=== PATIENT | female | born 1990 | race Caucasian/White ===

== ENCOUNTER 2020-01-22 14:08 | Emergency (ER) | payer OTHER, SELFPAY ==
--- NOTE | ~2020-01-22 | XR_ITS ---
XR foot LT min 3V 01/22/2020 14:35 Indication: Left foot pain after recent fall Procedure: 4 views left foot Comparison: No prior studies for comparison. Findings: Normal alignment. No fracture or traumatic malalignment. Lisfranc joint is intact. No focal soft tissue abnormality. No radiopaque foreign bodies. Impression: 1: No acute bone or joint abnormality. Reviewed, dictated and finalized at location B. Impression: 1: No acute bone or joint abnormality.
[2020-01-22 14:19] VITALS: BP 137/71; PULSE 75; RESP 16; TEMP 36.8; O2SAT 99
[2020-01-22 14:24] VITALS: BP 137/71; PULSE 75; RESP 16; TEMP 36.8; O2SAT 99
--- NOTE | 2020-01-22 14:54 | ED.LOWEXIN ---
HPI - Extremity Injury (Lower) General Chief Complaint: Extremity Injury, Lower Stated Complaint: Left foot and leg Time Seen by Provider: 01/22/20 14:41 Source: patient and RN notes reviewed Mode of arrival: ambulatory Limitations: no limitations History of Present Illness HPI Narrative: Patient presents today complaining of pain to her left foot. 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 Pain is primarily with weightbearing. Denies numbness or tingling in the leg or foot. Currently rates her pain 3/10 at rest. She has been taking ibuprofen applying ice, and elevating the foot without much relief. She is not applying for Workmen's Compensation. MD complaint: foot injury Related Data Home Medications Medication Instructions Recorded Confirmed No Home Medications 01/22/20 01/22/20 Allergies Allergy/AdvReac Type Severity Reaction Status Date / Time No Known Allergies Allergy Verified 10/12/17 15:51 Review of Systems Review of Systems: Narrative: CONSTITUTIONAL: Denies body aches, fever, chills, or sweats. EYES: Denies visual changes, redness, or discharge. ENT: Denies rhinorrhea, congestion, sore throat, or otalgia. CARDIOVASCULAR: Denies chest pain, palpitations, or edema. RESPIRATORY: Denies cough or dyspnea. GASTROINTESTINAL: Denies abdominal pain, nausea, vomiting, or diarrhea. GENITOURINARY: Denies dysuria or hematuria. SKIN: Denies rash, itching, or wounds. MUSCULOSKELETAL: Denies back pain, or myalgia. + Left foot injury NEUROLOGIC: Denies headache, numbness, tingling, or weakness. PSYCH: Denies depression or anxiety. PMFSH Comments At time of signature, I have reviewed and agree with nursing past medical, surgical, social and family history unless otherwise noted. Please see nursing chart for further information. There is no relevant family history pertinent to the presenting complaint Exam Narrative: Exam Narrative: GENERAL: Well-appearing, well-nourished, and in no acute distress. HEAD: Normocephalic, atraumatic. EYES: EOMI. No redness or drainage. Conjunctivae normal. ENT: Mucous membranes pink and moist. NECK: Normal AROM. Supple. No lymphadenopathy. CHEST: No respiratory distress. EXTREMITIES: Tenderness to the dorsum of the left midfoot as well as the portion of the arch. No edema, ecchymosis, or erythema noted. No tenderness about the ankle. Distal sensation intact. Capillary refill normal. Pedal pulse normal. Full range of motion of the ankle and all toes. SKIN: Warm, dry, no rash. Capillary refill normal. Normal skin turgor. NEURO: No focal deficits. Alert and oriented x3. Gait steady. PSYCH: Normal affect. No signs of depression or anxiety. Course Vital Signs Vital signs: Vital Signs Temperature 98.3 F 01/22/20 14:19 Pulse Rate 75 01/22/20 14:19 Respiratory Rate 16 01/22/20 14:19 Blood Pressure 137/71 01/22/20 14:19 Pulse Oximetry 99 01/22/20 14:19 Temperature 98.3 F 01/22/20 14:24 Pulse Rate 75 01/22/20 14:24 Respiratory Rate 16 01/22/20 14:24 Blood Pressure 137/71 01/22/20 14:24 Pulse Oximetry 99 01/22/20 14:24 Reviewed. Pt has been instructed to follow up with her PCP regarding her elevated blood pressure today. MDM - Extremity Injury (Lower) Differential Diagnosis Differential diagnosis: Likely ankle sprain and strain, ankle fracture and other (Foot sprain, foot fracture, contusion) Imaging Data Radiologist's impression: ITS Impressions Foot X-Ray 01/22/20 14:37 Impression: 1: No acute bone or joint abnormality. Critical Care Time Critical Care Time Critical Care Time: No Discharge Plan Discharge Clinical Impression: Sprain of foot, left Patient Disposition: Home, Self-Care Condition: Stable Instructions: Foot Sprain (ED) Additional Instructions: Your x-ray is negative for anything co
== END 2020-01-22 15:08 | disposition home or self-care (01) ==
PROVIDERS: Emergency Provider Nurse Practitioner
DX: S93.602A Unspecified sprain of left foot, initial encounter (principal); X50.9XXA Other and unspecified overexertion or strenuous movements or postures, initial encounter; N80.9 Endometriosis, unspecified
CPT/HCPCS: 73630; 99213; G0463

== ENCOUNTER 2020-08-28 11:07 | Emergency (ER) | payer OTHER, SELFPAY ==
[2020-08-28 11:21] VITALS: BP 119/77; PULSE 77; RESP 20; TEMP 36.4; O2SAT 100
--- NOTE | 2020-08-28 11:36 | ED.EAR ---
HPI - Ear Problem General Chief complaint: Ear Stated complaint: ear ache Time Seen by Provider: 08/28/20 11:26 Source: patient and RN notes reviewed Mode of arrival: ambulatory Limitations: no limitations History of Present Illness HPI Narrative: Patient presents today complaining of left ear pain x1 week that has been worsening since onset. She also reports some muffled hearing. Currently rates her pain 5/10, which increases with the wind hits her ear. She has been taking ibuprofen without relief. She also tried some peroxide in her ear yesterday, which she states made the ear hurt worse. MD Complaint: ear pain Location: left ear Related Data Allergies Allergy/AdvReac Type Severity Reaction Status Date / Time No Known Allergies Allergy Verified 08/28/20 11:23 Review of Systems Review of Systems: Narrative: CONSTITUTIONAL: Denies body aches, fever, chills, or sweats. EYES: Denies visual changes, redness, or discharge. ENT: Denies rhinorrhea, congestion, sore throat. + Left ear pain CARDIOVASCULAR: Denies chest pain, palpitations, or edema. RESPIRATORY: Denies cough or dyspnea. GASTROINTESTINAL: Denies abdominal pain, nausea, vomiting, or diarrhea. GENITOURINARY: Denies dysuria or hematuria. SKIN: Denies rash, itching, or wounds. MUSCULOSKELETAL: Denies back pain, joint pain, or myalgia. NEUROLOGIC: Denies headache, numbness, tingling, or weakness. PSYCH: Denies depression or anxiety. [facility] Family History Family History (Updated 11/28/13 @ 07:13 by DOCTOR UNKNOWN) Mother Family history of hyperthyroidism Other Family history of malignant neoplasm of cervix Social History Social History Second hand tobacco smoke exposure: No Alcohol intake: never Comments At time of signature, I have reviewed and agree with nursing past medical, surgical, social and family history unless otherwise noted. Please see nursing chart for further information. There is no relevant family history pertinent to the presenting complaint Exam Narrative: Exam Narrative: GENERAL: Well-appearing, well-nourished, and in no acute distress. HEAD: Normocephalic, atraumatic. EYES: EOMI. No redness or drainage. Conjunctivae normal. ENT: Mucous membranes pink and moist. Nares clear. No rhinorrhea. Right TM normal. Left TM partially occluded with hard, dry, ball of cerumen that is pushed up against the TM. Surrounding canal is mildly erythematous. Throat normal. Uvula midline. NECK: Normal AROM. Supple. No lymphadenopathy. CHEST: No respiratory distress. Clear to auscultation. HEART: Regular rate and rhythm. No murmur appreciated. Normal peripheral pulses. EXTREMITIES: Normal range of motion. No edema. SKIN: Warm, dry, no rash. Capillary refill normal. Normal skin turgor. NEURO: No focal deficits. Alert and oriented x3. Gait steady. PSYCH: Normal affect. No signs of depression or anxiety. Course Course Emergency Course: I offered to remove the cerumen from patient's ear, but she has declined today. Since it is too close to the TM I wanted to instill peroxide first and flush it, but since this was too painful for patient yesterday to do at home she has declined. She wanted to try some Debrox at home then try to flush it out by herself. Vital Signs Vital signs: Vital Signs Temperature 97.5 F L 08/28/20 11:21 Pulse Rate 77 08/28/20 11:21 Respiratory Rate 20 08/28/20 11:21 Blood Pressure 119/77 08/28/20 11:21 Pulse Oximetry 100 08/28/20 11:21 Temperature 97.5 F L 08/28/20 11:21 Pulse Rate 77 08/28/20 11:21 Respiratory Rate 20 08/28/20 11:21 Blood Pressure 119/77 08/28/20 11:21 Pulse Oximetry 100 08/28/20 11:21 Reviewed Medical Decision Making Differential Diagnosis Differential Diagnosis: Otitis media, otitis externa, ruptured TM, serous otitis, eustachian tube dysfunction, cerumen impaction Vital Signs Vital Signs: Vital Signs Temperature 97.5 F L 08/28/20 11:21 Pulse Rate 77
== END 2020-08-28 11:43 | disposition home or self-care (01) ==
PROVIDERS: Emergency Provider Nurse Practitioner
DX: H61.22 Impacted cerumen, left ear (principal)
CPT/HCPCS: 99203; G0463

== ENCOUNTER 2021-07-17 14:29 | Emergency (ER) | payer OTHER, SELFPAY ==
[2021-07-17 14:39] VITALS: BP 129/75; PULSE 68; RESP 16; TEMP 35.8; O2SAT 100
--- NOTE | 2021-07-17 15:11 | ED.ABDPAIN ---
HPI - Abdominal Pain General Chief Complaint: Abdominal Pain Stated Complaint: Abdominal Pain Time Seen by Provider: 07/17/21 15:11 Source: patient Mode of arrival: ambulatory Limitations: no limitations History of Present Illness HPI narrative: 31-year-old female presents with left groin pain for 3 to 4 days. Reports history of similar pain 1 year ago and was told that she had lymph node swelling to this area. Patient states that pain is worse with change of positions and when ambulatory. 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 Is possible that she caused an injury to herself. Has not taken any medication to treat her pain. Denies abdominal pain. No urinary symptoms. States that she does have a hemorrhoid that she has had for a long time, denies current constipation or bleeding from hemorrhoid. No nausea vomiting diarrhea. No concern for . All systems reviewed and negative except as noted. Related Data Allergies Allergy/AdvReac Type Severity Reaction Status Date / Time No Known Allergies Allergy Verified 06/23/21 11:00 Review of Systems Review of Systems: CONSTITUTIONAL: Denies fever, chills, or sweats. EYES: Denies visual changes, redness, or discharge. ENT: Denies rhinorrhea, congestion, sore throat, or otalgia. CARDIOVASCULAR: Denies chest pain, palpitations, or edema. RESPIRATORY: Denies cough or dyspnea. GASTROINTESTINAL: Denies abdominal pain, nausea, vomiting, or diarrhea. GENITOURINARY: Denies dysuria or hematuria. SKIN: Denies rash or itching. MUSCULOSKELETAL: Denies back pain, joint pain, or myalgia. Reports left groin pain. NEUROLOGIC: Denies headache, numbness, or weakness. PSYCHIATRIC: Denies anxiety or depression. All other systems reviewed are negative, except as documented in HPI. [facility] Family History Family History (System 06/23/21 @ 11:00 by Юлия White) Mother Family history of hyperthyroidism Other Family history of malignant neoplasm of cervix Social History Social History (System 06/23/21 @ 11:00 by Юлия White) Second hand tobacco smoke exposure: No Alcohol intake: never Comments At time of signature, agree with nursing past medical, surgical, social and family history. There is no relevant family history pertinent to the presenting complaint. Exam Narrative: GENERAL: This is a well-nourished, well-developed patient, in no apparent distress. HEAD: normocephalic, atraumatic. EYES: PERRL. Sclera clear/white. Vision is grossly intact. EARS: External ears normal NOSE: External nose normal NECK: Neck supple, non-tender without lymphadenopathy, masses or thyromegaly. CARDIOVASCULAR: Regular rate and rhythm without murmurs, gallops, or rubs. RESPIRATORY: Clear to auscultation. Breath sounds equal bilaterally. No wheezes, rales, or rhonchi. Gastrointestinal: Normal bowel sounds. No tenderness to abdomen. No guarding, masses, swelling noted. SKIN: warm, Dry, intact with no suspicious lesions or rash, good texture and turgor. NEURO: awake, alert, and oriented to person, place and time. There were no obvious focal neurologic abnormalities. EXTREMITIES: Tenderness to left groin. Worsening of pain with abduction and abduction of left hip. There is no lymph node swelling noted. Course Course Level of Care: Express Care Visit Vital Signs Vital signs: Vital Signs Temperature 35.8 C L 07/17/21 14:39 Pulse Rate 68 07/17/21 14:39 Respiratory Rate 16 07/17/21 14:39 Blood Pressure 129/75 07/17/21 14:39 Pulse Oximetry 100 07/17/21 14:39 Temperature 35.8 C L 07/17/21 14:39 Pulse Rate 68 07/17/21 14:39 Respiratory Rate 16 07/17/21 14:39 Blood Pressure 129/75 07/17/21 14:39 Pulse Oximetry 100 07/17/21 14:39 Reviewed MDM - Abdominal Pain MDM Narrative Medical decision making narrative: Patient is aware of diagnosis, understands and agrees to treatment plan. Anticipatory guidance given. Patient agrees to follow-up as di
== END 2021-07-17 15:22 | disposition home or self-care (01) ==
PROVIDERS: Emergency Provider Nurse Practitioner Family
DX: S39.011A Strain of muscle, fascia and tendon of abdomen, initial encounter (principal); X58.XXXA Exposure to other specified factors, initial encounter
CPT/HCPCS: 99213; G0463

== ENCOUNTER 2021-08-07 12:12 | Emergency (ER) | payer OTHER, SELFPAY ==
--- NOTE | 2021-08-07 12:23 | ED.DENTAL ---
HPI - Dental/Oral General Chief complaint: Dental/Oral Stated complaint: TOOTH ACHE Time Seen by Provider: 08/07/21 13:00 Source: patient Mode of arrival: ambulatory Limitations: no limitations History of Present Illness HPI Narrative: Silvio is a 31-year-old female patient presenting to clinic today with left lower dental pain x2 to 3 days. She reports that she has a dentist appointment on Monday however she has a hole in her tooth and thinks that her tooth may be infected. Location: Tooth # (18) Related Data Allergies Allergy/AdvReac Type Severity Reaction Status Date / Time No Known Allergies Allergy Verified 08/07/21 12:43 Review of Systems Review of Systems: Pertinent positives per HPI. Patient denies any fever, chills, rash, headache, visual changes, dizziness, cough, runny nose, sore throat, shortness of breath, chest pain, palpitations, nausea, vomiting, diarrhea, constipation, abdominal pain, or any urinary issues. PMFSH Family History Family History Mother Family history of hyperthyroidism Other Family history of malignant neoplasm of cervix Social History Social History Second hand tobacco smoke exposure: No Alcohol intake: never Comments At the time of my signature, I reviewed and agree with the nursing past medical, surgical, social, and family history. There is no relevant family history pertinent to the patient complaint. Exam Narrative: General: Well-developed, well nourished, in no apparent distress Head: Normocephalic, atraumatic Eyes: Pupils equally round and reactive to light bilaterally, EOM intact, sclera and conjunctive clear, no discharge, lids normal Ears: TMs intact and clear, ear canals clear, no drainage, grossly hearing normal. Nose: Nares patent, no discharge, no inflammation, no sinus tenderness. Mouth: Oropharynx without lesions or masses, poor dentition, she has a hole/dental carries #18 tooth with redness and swelling around the gums, has a small knotted area just below the tooth to the jaw line. MMM. Neck: Supple, trachea midline, no enlargement of anterior or posterior cervical nodes, no thyroid masses or goiter palpable. Cardio: Regular rate and rhythm, s1 and s2 normal, no murmur appreciated. Resp: Clear to auscultation bilaterally anteriorly and posteriorly, no rhonchi, rales, wheezing or rubs Course Course Emergency Course: Portions of this record may have been created with voice recognition software. Level of Care: Express Care Visit Vital Signs Vital signs: Vital signs reviewed Procedures Nerve Block Nerve Block 1: Intraoral Nerve Block: inferior alveolar Procedure Successful: Yes Patient Tolerated Procedure: well Additional Comments: Inferior alveolar block performed to the left lower jaw. 2 mL of lidocaine with epi was instilled into the space. Patient tolerated procedure well. Pain decreased from a 6 to a 4 and she still had some throbbing to so a dose of Toradol 60 mg IM was given in the clinic. MDM - Dental/Oral MDM Narrative Medical decision making narrative: At the time of visit patient is resting on the exam table in moderate pain. Inferior alveolar dental block performed and this gave the patient some relief however she was still having some throbbing pain so an additional dose of Toradol 60 mg IM was given. We will place the patient on amoxicillin and have her follow-up with her dentist as scheduled on Monday. She voiced understanding of discharge instruction Differential Diagnosis Differential diagnosis: Likely gingival abscess, dental caries, toothache, dental abscess, fracture of tooth and aphthous ulcer Discharge Plan Discharge Clinical Impression: Dental infection Patient Disposition: Home, Self-Care Condition: Stable Instructions: Antibiotic Form, Dental Abscess (ED) Additional I
[2021-08-07 12:30] VITALS: BP 115/65; PULSE 91; RESP 16; TEMP 37.4; O2SAT 100
[2021-08-07] MEDS: KETOROLAC (*BKC) 60 MG/2 ML VIAL IM (13:07)
== END 2021-08-07 13:25 | disposition home or self-care (01) ==
PROVIDERS: Emergency Provider Nurse Practitioner Family
DX: K04.7 Periapical abscess without sinus (principal)
CPT/HCPCS: 64400; 96372; 99213; G0463; J1885

== ENCOUNTER 2021-12-08 15:31 | Outpatient (CLI) | payer OTHER, SELFPAY ==
--- NOTE | ~2021-12-08 | US_ITS ---
EXAMINATION: US pelvic complete w TV DATE: 12/08/2021 16:38 INDICATION: Female infertility, unspecified TECHNIQUE: Multiple transabdominal and endovaginal sonographic images of the pelvis were obtained. COMPARISON: None. FINDINGS: The uterus measures 6.7 x 4.3 x 5.9 cm. The endometrial complex measures 21 mm. The right o vary measures 3.7 x 1.7 x 2.4 cm. The left ovary measures 4.1 x 2.7 x 3.2 cm. There is a 2.2 x 1.8 x 2 cm complex cystic and solid mass of the left ovary but no definite internal vascularity. There is n ormal vascular flow in the ovaries. There is no free fluid in the pelvis. IMPRESSION: 1. Endometrial thickening which, assuming negative test, may be due to hyperplasia, polyp, or malignancy. Endometrial sampling is recommended. 2. Complex cystic and solid mass of the left ovary which could reflect hemorrhagic cyst, endometrioma , or less likely solid neoplasm. Follow-up ultrasound in 8-12 weeks is recommended. Reviewed, dictated and finalized at location B. IMPRESSION: 1. Endometrial thickening which, assuming negative test, may be due t o hyperplasia, polyp, or malignancy. Endometrial sampling is recommended. 2. Complex cystic and solid mass of the left ovary which could reflect hemorrha gic cyst, endometrioma, or less likely solid neoplasm. Follow-up ultrasound in 8-12 weeks is recommended.
== END 2021-12-08 15:32 | disposition home or self-care (01) ==
PROVIDERS: Visit Provider Advanced Practice Midwife
DX: N97.9 Female infertility, unspecified (principal); R93.89 Abnormal findings on diagnostic imaging of other specified body structures; N83.202 Unspecified ovarian cyst, left side
CPT/HCPCS: 76830; 76856

== ENCOUNTER 2021-12-23 11:49 | Outpatient (CLI) | payer OTHER, SELFPAY ==
--- NOTE | ~2021-12-23 | XR_ITS ---
EXAMINATION: XR hysterosalpingogram DATE: 12/23/2021 12:37 INDICATION: Infertility. TECHNIQUE: Fluoroscopy was performed by the radiologist during contrast infusion into the endometrial cavity of the uterus by the primary physician. Fluoroscopy exposure time was 0.2 minutes. The total number of images was 10. FINDINGS: The intrauterine cavity is normal in morphology. The fallopian tubes are normal in caliber. There is normal free intraperitoneal spillage of contrast bilaterally. IMPRESSION: 1. Normal hysterosalpingogram. Reviewed, dictated and finalized at location A.
== END 2021-12-23 11:50 | disposition home or self-care (01) ==
PROVIDERS: Visit Provider Obstetrics & Gynecology Gynecology
DX: Z31.49 Encounter for other procreative investigation and testing (principal)
CPT/HCPCS: 58340; 74740; Q9966

== ENCOUNTER 2022-01-18 15:01 | Outpatient (CLI) | payer OTHER, SELFPAY ==
--- NOTE | ~2022-01-18 | US_ITS ---
EXAMINATION: US pelvic complete w TV DATE: 01/18/2022 15:32 INDICATION: LT OVARIAN CYST UNSPECIFIED TECHNIQUE: Multiple transabdominal and endovaginal sonographic images of the pelvis were obtained. COMPARISON: [place]08[place] [facility] [place]. FINDINGS: Uterus: 7.6 x 4.3 x 3.8 cm. Endometrial complex measures 6 mm. Right Ovary: 2.3 x 3.0 x 1.5 cm. Vascular flow is present. Left Ovary: 1.9 x 1.9 x 2.4 cm. Vascular flow is present. There is small volume free fluid in the pelvis. IMPRESSION: Normal pelvic sonogram findings. Previously described endometrial thickening and complex left ovarian lesion or not identified in this examination. Reviewed, dictated and finalized at [facility]. IMPRESSION: Normal pelvic sonogram findings. Previously described endometrial thickening an d complex left ovarian lesion or not identified in this examination.
== END 2022-01-18 15:02 | disposition home or self-care (01) ==
LOC: ANHIMG 15:03
PROVIDERS: Visit Provider Obstetrics & Gynecology Gynecology
DX: N83.202 Unspecified ovarian cyst, left side (principal)
CPT/HCPCS: 76830; 76856

== ENCOUNTER 2023-02-19 13:32 | Emergency (ER) | payer OTHER, SELFPAY | END 2023-02-19 13:47 | disposition left against medical advice (07) | PROVIDERS: Emergency Provider Nurse Practitioner | DX: Z53.21 Procedure and treatment not carried out due to patient leaving prior to being seen by health care provider (principal) | CPT/HCPCS: 99199 ==

== ENCOUNTER 2024-10-22 10:35 | Emergency (ER) | payer SELFPAY ==
[2024-10-22 10:43] VITALS: BP 117/74; PULSE 85; RESP 16; TEMP 36.7; O2SAT 99
--- NOTE | 2024-10-22 10:45 | ED_ITS ---
HPI - Abdominal Pain General Chief Complaint: Abdominal Pain Stated Complaint: Abdominal Pain/Vomiting Time Seen by Provider: 10/22/24 10:46 Source: patient and RN notes reviewed Mode of arrival: ambulatory Limitations: no limitations History of Present Illness HPI narrative: 34 y/o female presented for c/o pain to right lower abdomen. Pain onset last night in the mid lower abdomen, and Says it has moved to the right this morning. Endorses 2 episodes of vomiting last night. Pain is described as sharp and intermittent, rates 6/10 or higher at times. Pain radiates to right upper abdomen. Also reports subjective fever/chills, decreased appetite. Tolerates fluids today. LBM this morning, normal. LMP 09/20. Denies back pain, urinary complaints, or lethargy. Related Data Allergies Allergy/AdvReac Type Severity Reaction Status Date / Time No Known Allergies Allergy Verified 10/22/24 10:38 Review of Systems Review of Systems: CONSTITUTIONAL: Denies body aches, reports fever, chills ENT: Denies rhinorrhea, congestion CARDIOVASCULAR: Denies chest pain, palpitations, or edema. RESPIRATORY: Denies cough or dyspnea. GASTROINTESTINAL: Endorses RLQ abdominal pain, nausea, vomiting,. Denies diarrhea, hematochezia, melena, hematemesis GENITOURINARY: Denies dysuria, hematuria, or CVA tenderness. SKIN: Denies rash MUSCULOSKELETAL: Denies back pain All systems reviewed & are unremarkable except as noted in HPI and below PMFSH Family History Family History Mother Family history of hyperthyroidism Other Family history of malignant neoplasm of cervix Social History Social History Second hand tobacco smoke exposure: No Alcohol intake: never Comments At time of signature, I have reviewed and agree with nursing past medical, surgical, social and family history unless otherwise noted. Please see nursing chart for further information. There is no relevant family history pertinent to the presenting complaint Exam Narrative: GENERAL: mildly ill-appearing, in no acute distress. EYES: EOMI. Conjunctivae normal. ENT: Mucous membranes pink and moist. CHEST: No respiratory distress. Clear to auscultation. HEART: Regular rate and rhythm. ABDOMEN: abd soft, nondistended, normal active bowel sounds. Tender abdomen RLQ; guarding noted. No rebound tenderness, asymmetry EXTREMITIES: Normal range of motion. SKIN: Warm, dry, no rash. Capillary refill normal. Normal skin turgor. NEURO: No focal deficits. Alert and oriented x3. PSYCH: Normal affect. Course Course Emergency Course: Patient is aware of diagnosis, understands and agrees to treatment plan. Anticipatory guidance given. Patient agrees to follow-up as directed and is aware of reasons to seek care at the emergency department. Portions of this record may have been created with voice recognition software Level of Care: Express Care Visit Vital Signs Vital signs: Vital Signs Temperature 98.1 F 10/22/24 10:43 Pulse Rate 85 10/22/24 10:43 Respiratory Rate 16 10/22/24 10:43 Blood Pressure 117/74 10/22/24 10:43 Pulse Oximetry 99 10/22/24 10:43 Oxygen Delivery Room Air 10/22/24 10:43 Temperature 98.1 F 10/22/24 10:43 Pulse Rate 85 10/22/24 10:43 Respiratory Rate 16 10/22/24 10:43 Blood Pressure 117/74 10/22/24 10:43 Pulse Oximetry 99 10/22/24 10:43 Oxygen Delivery Room Air 10/22/24 10:43 Transfer Transfered to: [facility] Transportation: Other ( Private vehicle) Transfer rationale: Pt is agreeable to transfer. Requests transfer to [facility] via private vehicle. Risks of transportation reviewed with pt including injury, worsening of condition and . v/u. has been will be driving pt; Report called to hospital, spoke with Kaylan Mills NP, accepting physician. Pt is in stable condition at time of transfer. Advised to remain NPO and go directly to the hospital. MDM - Abdominal Pain MDM Narrative Medical decision making narrative: Pt with RLQ abdominal pain that started mid lower last night. Unable to obtain urine Preg test after one hour and water given. Advised ER transfer, pt requests [facility]. Differential Diagnosis Differential diagnosis: Likely abdominal pain, acute appendicitis, calculus of kidney, constipation, diverticulitis, pancreatitis, small bowel obstruction and other Discharge Plan Discharge Clinical Impression: Abdominal pain, right lower quadrant Patient Disposition: Acute Care Hospital Condition: Stable Patient Language: Upper Sorbian Follow-up/Referrals: Michael,Hui Gutierrez APRN [Primary Care Provider] - Time of Disposition: 11:50
== END 2024-10-22 11:47 | disposition short-term general hospital (02) ==
PROVIDERS: Emergency Provider Nurse Practitioner Family; PCP Midwife
DX: R10.31 Right lower quadrant pain (principal)
CPT/HCPCS: 99212; G0463

== ENCOUNTER 2024-10-22 12:03 | Day surgery (SDC) | payer SELFPAY ==
[2024-10-22] VITALS (10 sets, daily range): BP systolic 99–140; BP diastolic 62–88; PULSE 51–80; RESP 16–21; TEMP 36.7–37.1; O2SAT 97–100
--- NOTE | ~2024-10-22 | CT_ITS ---
EXAM: CT abdomen pelvis w con - 10/22/2024 14:20 CDT History: 34 years old Female with RLQ pain and WBC >13 TECHNIQUE: Multidetector CT of the abdomen and pelvis with intravenous contrast. Coronal and sagitta l reformats were also provided for review. Automatic exposure control was used for this study. CONTRAST: 100 cc of Optiray 350 was used for this study. COMPARISON: None Available. FINDINGS: VISUALIZED CHEST: Visualized lungs are clear. ABDOMEN and PELVIS: LIVER: Within normal limits. GALLBLADDER: No calcified gallstones. BILE DUCTS: No dilatation. SPLEEN: Within normal limits. PANCREAS: Within normal limits. ADRENAL GLANDS: Within normal limits. KIDNEYS and URETERS: No hydronephrosis or hydroureter. No nephroureterolithiasis. URINARY BLADDER: Within normal limits. STOMACH and BOWEL: Thickened hyperenhancing appendix, measuring up to 10 mm. Findings are concerning for acute appendicitis. REPRODUCTIVE ORGANS: Within normal limits. MESENTERY/PERITONEAL CAVITY: No free fluid or pneumoperitoneum. LYMPH NODES: No abdominal or pelvic lymphadenopathy. ABDOMINAL WALL: Within normal limits. VASCULATURE: Within normal limits. MUSCULOSKELETAL: Within normal limits. IMPRESSION: Findings concerning for acute appendicitis. Reviewed, dictated and finalized at location A.
--- OUTSIDE RECORDS SUMMARY | 2024-10-22 12:05 | XMS_ITS | Clinical Summary ---
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 Gender Identity Not on file Sexual Orientation Not on file Obstetrics History Last Filed Vital Signs Vital Sign Reading Time Taken Comments Blood Pressure 125/81 10/21/2021 1:48 PM CDT Pulse 62 10/21/2021 1:48 PM CDT Temperature 36.6 C (97.9 F) 10/21/2021 10:51 AM CDT Respiratory Rate 20 10/21/2021 1:48 PM CDT Oxygen Saturation 98% 10/21/2021 1:48 PM CDT Inhaled Oxygen Concentration - - Weight 54.4 kg (120 lb) 10/21/2021 10:51 AM CDT Height 165.1 cm (5' 5) 10/21/2021 10:51 AM CDT Body Mass Index 19.97 10/21/2021 10:51 AM CDT Plan of Treatment Health Maintenance Due Date Last Done Comments Cervical Cancer Screening 1991 Depression Screening 1991 Hepatitis C Screening 1991 Varicella Vaccines (2 of 2 - 2-dose childhood series) 1995 05/21/1992 Regular Well Visit/Exam 18-64 2009 DTaP/Tdap/Td Vaccine (7 - Td or Tdap) 10/22/2015 10/21/2005, 08/20/1996, 06/10/1993, Additional history exists Influenza Vaccine (Season Ended) 2024 Hepatitis B Screening Completed 08/07/2001 , 03/06/2001, 02/06/2001 HPV Vaccines Completed 04/27/2007, 12/03, 10/20/2006 Pneumococcal vaccine <65 Aged Out No longer eligible based on patient's age to complete this topic Insurance [id number] [place] [address] Care Teams Overedger Relationship Specialty Start Date End Date Hui Rodriguez NP [address] [place] [id number] PCP - General Family Medicine 03/15/23 Lita Phillips MD [address] [address] Referring Physician Gynecology 05/03/24
--- OUTSIDE RECORDS SUMMARY | 2024-10-22 12:05 | XMS_ITS | Referral Summary ---
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
[2024-10-22 13:27] LABS: BEDSIDEPREGUCG Negative (Negative)
[2024-10-22 13:35] LABS: Hematocrit 39.1 % (37.0-47.0); Hemoglobin 12.5 g/dL (12.0-15.0); Immature Granulocyte Percent A 0.4 % (0-0.5); Lymphocytes Absolute Auto 1.26 K/mm3 (0.9-3.2); Mean Corpuscular HGB Conc 32.0 g/dl (32-36); Mean Corpuscular Hemoglobin 26.8 pg (26-34); Mean Corpuscular Volume 83.9 fl (80-100); Nucleated Red Blood Cells Absolute Auto 0.000 K/mm3 (0.0-0.012); Nucleated Red Blood Cells Perc 0.0 % (0.0-0.2); Platelet Count Result 259 k/mm3 (150-375); Red Blood Count 4.66 M/mm3 (4.2-5.4); White Blood Count 13.8 K/mm3 (4.5-10.0)
[2024-10-22 13:54] LABS: Alanine Aminotransferase 15 U/L (6-35); Albumin Level 5.0 g/dL (3.5-5.1); Alkaline Phosphatase 74 U/L (38-126); Anion Gap 10 mmol/L (4-12); Aspartate Amino Transferase 30 U/L (14-36); Bilirubin,Total 0.9 mg/dL (0.2-1.3); Blood Urea Nitrogen 10 mg/dL (7-17); Calcium 9.5 mg/dL (8.4-10.2); Carbon Dioxide 24 mmol/L (22-30); Chloride 101 mmol/L (98-107); Estimated CRCL calculation 86 ml/min; Estimated Glomerular Filt Rate > 60; Glucose 88 mg/dL (65-110); Lipase 46 U/L (23-300); Potassium 3.5 mmol/L (3.4-5.0); Sodium 135 mmol/L (137-145); Total Protein 8.4 g/dL (6.3-8.2)
[2024-10-22] MEDS: MORPHINE SULFATE (*CRX) 4 MG/ML INJ IV PUSH (13:55)
[2024-10-22 13:56] LABS: Add Urine Microscopic? YES; Appearance Urine Clear (Clear); Glucose Urine UA Negative (Negative); Leukocyte Esterase Ur Trace LEU/UL (Negative); Need Manual Microscopic Reviewed; Nitrate Urine Negative (Negative); Non Pathogenic Casts 0-2; Specific Grav Ur 1.004 (1.001-1.035)
--- OUTSIDE RECORDS SUMMARY | 2024-10-22 14:00 | XMS_ITS | Referral Summary ---
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
--- OUTSIDE RECORDS SUMMARY | 2024-10-22 14:00 | XMS_ITS | Clinical Summary ---
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
--- NOTE | 2024-10-22 14:04 | ED.ABDPAIN ---
HPI - Abdominal Pain General Chief Complaint: Abdominal Pain Stated Complaint: abd pain Time Seen by Provider: 10/22/24 13:41 Source: patient and family () Mode of arrival: ambulatory Limitations: no limitations History of Present Illness HPI narrative: 34-year-old female presents after being sent urgent care for abdominal pain. She states the pain started inferior to her umbilicus migrated to right quadrant. This started yesterday morning and has persisted. She feels nauseated and had 2 episodes of nonbloody emesis. Last oral intake was approximately 7 or 8:00 p.m.. She is anticoagulation. Her bowel movement was this morning she denies any diarrhea, constipation bloody stools. No prior abdominal surgeries other than an enddometrial sampling to assess for endometrosis. Her last menstrual period was around the 20 of September. She had hematuria in a few weeks ago as was recurrence. She denies any urinary urgency, frequency, dysuria. She denies any vaginal bleeding discharge. She has felt subjectively febrile and chilled. Related Data Allergies Allergy/AdvReac Type Severity Reaction Status Date / Time No Known Allergies Allergy Verified 10/22/24 10:38 [facility] Family History Family History Mother Family history of hyperthyroidism Other Family history of malignant neoplasm of cervix Social History Social History Second hand tobacco smoke exposure: No Alcohol intake: never Substance use: current Substance use type: marijuana Other substance usage details: daily Living arrangements: with family Additional living arrangements comments: Exam Narrative: GENERAL: Well-appearing, well-nourished, in mild acute distress. HEAD: Normocephalic, atraumatic. EYES: Non injected, non icteric ENT: Nares clear, no rhinorrhea or epistaxis. Gross auditory acuity intact. NECK: Supple. No meningismus. CHEST: Speaking in full sentences. No respiratory distress. HEART: Regular rate and rhythm. . ABDOMEN: Soft, nondistended. Localized tenderness to palpation in the right lower quadrant. Rovsing sign positive. No rigidity or guarding. Not peritoneal EXTREMITIES: Normal range of motion. No lower extremity edema. SKIN: Warm, dry, no rash. NEURO: No focal deficits. Alert and oriented. Answering questions. Following commands. Normal speech without aphasia or dysarthria. PSYCH: Normal mood and affect. Course Vital Signs Vital signs: Vital Signs Temperature 98.3 F 10/22/24 12:38 Pulse Rate 77 10/22/24 12:38 Respiratory Rate 16 10/22/24 12:38 Blood Pressure 131/84 10/22/24 12:38 Pulse Oximetry 100 10/22/24 12:38 Oxygen Delivery Room Air 10/22/24 12:38 Temperature 98.1 F 10/22/24 19:38 Pulse Rate 56 L 10/22/24 21:00 Respiratory Rate 16 10/22/24 20:25 Blood Pressure 127/88 10/22/24 21:00 Pulse Oximetry 97 10/22/24 20:25 Oxygen Delivery Room Air 10/22/24 21:00 Oxygen Flow Rate 6 10/22/24 20:05 MDM - Abdominal Pain MDM Narrative Medical decision making narrative: 34-year-old female presents with report abdominal pain. This started as pain just below her umbilicus and migrated to her right lower quadrant starting yesterday morning. It is accompanied by nausea, 2 episodes emesis and subjective fevers and chills. Last oral intake was night at approximately 7 or 8:00 p.m.. Not on anticoagulation. In the emergency department they are afebrile with vital signs within normal limits. She has a leukocytosis. Normal renal function. Mild hyponatremia. Slight pyuria but it does reflex to culture. CT with evidence of acute appendicitis. Patient is informed and verifies understanding. Discussed with Dr. Avalos. Georges ordered. Patient will be added onto the OR schedule for this evening. Has otherwise been stable and received analgesic medication as well as antiemetic. Differential Diagnosis Differential diagnosis: Likely abdominal pain, acute appendicitis, calculus of kidney, constipation, diverticulitis, endometriosis and other (Ovarian pathology like torsion or tubo-ovarian abscess; colitis; ovarian cyst) Lab Data Attestation: I reviewed the patient's lab results. 10/22/24 13:27 10/22/24 13:27 Labs: Lab Results 10/22/24 10/22/24 Range/Units 13: 13:27 WBC 13.8 H (4.5-10.0) K/mm3 RBC 4.66 (4.2-5.4) M/mm3 Hgb 12.5 (12.0-15.0) g/dL Hct 39.1 (37.0-47.0) % MCV 83.9 (80-100) fl MCH 26.8 (26-34) pg MCHC 32.0 (32-36) g/dl RDW 15.9 H (11.5-14.5) % Plt Count 259 (150-375) k/mm3 MPV 11.1 H (7.4-10.4) fl Immature Gran % (Auto) 0.4 (0-0.5) % Neut % (Auto) 85.0 H (45.5-73.1) % Lymph % (Auto) 9.2 L (18.3-44.2) % [place] % (Auto) 4.9 (2.6-8.5) % Eos % (Auto) 0.2 (0-4.4) % Baso % (Auto) 0.3 (0.2-1.2) % Lymph # (Auto) 1.26 (0.9-3.2) K/mm3 [place] # (Auto) 0.7 H (0.1-0.6) K/mm3 Eos # (Auto) 0.0 (0-0.3) K/mm3 Baso # (Auto) 0.0 (0.0-0.1) K/mm3 Abs Immat Gran (auto) 0.06 H (0.00-0.031) K/mm3 Absolute Neuts (auto) 11.7 H (1.3-6.7) K/mm3 Absolute Nucleated RBC 0.000 (0.0-0.012) K/mm3 Nucleated RBC % 0.0 (0.0-0.2) % Sodium 135 L (137-145) mmol/L Potassium 3.5 (3.4-5.0) mmol/L Chloride 101 (98-107) mmol/L Carbon Dioxide 24 (22-30) mmol/L Anion Gap 10 (4-12) mmol/L BUN 10 (7-17) mg/dL Creatinine 0.63 L (0.7-1.0) mg/dL Estim Creat Clear Calc 86 ml/min Estimated GFR > 60 (59 - ) Glucose 88 (65-110) mg/dL Calcium 9.5 (8.4-10.2) mg/dL Total Bilirubin 0.9 (0.2-1.3) mg/dL AST 30 (14-36) U/L ALT 15 (6-35) U/L Alkaline Phosphatase 74 (38-126) U/L Total Protein 8.4 H (6.3-8.2) g/dL Albumin 5.0 (3.5-5.1) g/dL Lipase 46 (23-300) U/L Urine Color Yellow (Yellow) Urine Appearance Clear (Clear) Urine pH 6.5 (5.0-9.0) Ur Specific [place] 1.004 (1.001-1.035) Urine Protein Negative (Negative) mg/dL Urine Glucose (UA) Negative (Negative) mg/dL Urine Ketones Negative (Negative) mg/dL Ur Blood (Man) Negative (Negative) Urine Nitrate Negative (Negative) Urine Bilirubin Negative (Negative) Urine Urobilinogen 0.2 (<2.0) mg/dL Add Ur Microanalysis Reviewed Leukocyte Esterase Rfl Trace H (Negative) SHANIQUE/UL Urine RBC 0-2 (0-2) /hpf Urine WBC 6-10 H (0-3) /hpf Ur Squamous Epith Cells Few (Few) /hpf Urine Bacteria None seen /hpf Urine Casts 0-2 POC Urine HCG, Qual Negative (Negative) Imaging Data Radiologist's impression: ITS Impressions Abdomen/Pelvis CT 10/22/24 14:30 IMPRESSION: Findings concerning for acute appendicitis. Discharge Plan Discharge Clinical Impression: Acute appendicitis, Leukocytosis, Sterile pyuria Patient Disposition: Still a Patient Condition: Stable Time of Disposition: 16:24
[2024-10-22] MEDS: ONDANSETRON INJ 4 MG/2 ML VIAL IV PUSH (14:16)
--- NOTE | 2024-10-22 15:42 | PC.NURSE ---
Dr. Russell made aware patient is still having intense abdominal pain.
[2024-10-22] MEDS: HYDROmorphone HCL INJ (*CRX) 2 MG/ML VIAL 0.5 MG IV PUSH (16:02)
--- NOTE | 2024-10-22 16:24 | P.HP_ITS ---
H&P: HPI History of Present Illness Date/Time: 10/22/24 16:24 Chief Complaint: Right lower quadrant pain Narrative: Patient is a 34 year old otherwise healthy female who presented to the ED today after initially being seen at [facility] in [place] with right lower quadrant pain that started last night. Patient states that the pain started as mid lower abdominal. She had two episodes of nausea and vomiting overnight. States she had some water roughly 3-4 hours ago, but nothing to eat today. Abdominal surgical history includes diagnostic laparoscopy to evaluate for endometriosis. She was not found to have endometriosis and she believes that she may have PCOS. No daily medications or allergies. Upon admission to the ED, a CT was obtained and demonstrated a thickened hyperenhancing appendix, measuring up to 10 mm, concerning for appendicitis. Labs demonstrated a WBC count of 13.8. Afebrile. [facility] Family History Family History Mother Family history of hyperthyroidism Other Family history of malignant neoplasm of cervix Social History Social History Second hand tobacco smoke exposure: No Alcohol intake: never Meds Home Medications and Allergies Allergies Allergy/AdvReac Type Severity Reaction Status Date / Time No Known Allergies Allergy Verified 10/22/24 10:38 Vital Signs Vital Signs - 24 hr 10/22/24 12:38 10/22/24 13:26 Temperature 98.3 F Pulse Rate 77 59 L Respiratory Rate 16 16 Blood Pressure 131/84 140/85 Pulse Oximetry 100 100 Oxygen Delivery Room Air Exam Const: General: comfortable Eyes: General: appearance normal, both eyes and all related structures Neck: Neck: supple Resp: Effort & Inspection: normal respiratory effort Cardio: Rate: regular rate GI: Inspection: non-distended GI Palp: Yes Soft to palpation and Yes Tenderness to palpation present (GI) Other: RLQ tenderness : General: Yes bladder normal to palpation Skin: General skin exam: normal color and no rashes or lesions noted Neuro: Speech: normal speech Sensory Exam: normal sensation Extrem: General: normal to inspection Psych: Mental Status: mental status grossly normal H&P: Results Labs Labs: Short CBC 10/22/24 Range/Units 13:27 WBC 13.8 H (4.5-10.0) K/mm3 Hgb 12.5 (12.0-15.0) g/dL Hct 39.1 (37.0-47.0) % Plt Count 259 (150-375) k/mm3 BMP 10/22/24 13:27 Sodium 135 L Potassium 3.5 Chloride 101 Carbon Dioxide 24 BUN 10 Creatinine 0.63 L Glucose 88 Calcium 9.5 Liver Function 10/22/24 Range/Units 13:27 Total Bilirubin 0.9 (0.2-1.3) mg/dL AST 30 (14-36) U/L ALT 15 (6-35) U/L Alkaline Phosphatase 74 (38-126) U/L Albumin 5.0 (3.5-5.1) g/dL Urine 10/22/24 Range/Units 13:27 Urine Color Yellow (Yellow) Urine Appearance Clear (Clear) Urine pH 6.5 (5.0-9.0) Ur Specific [place] 1.004 (1.001-1.035) Urine Protein Negative (Negative) mg/dL Urine Glucose (UA) Negative (Negative) mg/dL Assessment and Plan Assessment and plan (1) Acute appendicitis: Code(s): K35.80 - Unspecified acute appendicitis Status: Acute Assessment and Plan: Patient presented with lower abdominal pain since last night, now localized to RLQ, with associated nausea and vomiting. CT imaging demonstrated acute appendicitis. WBC 13.8. Discussed risks and benefits of laparoscopic appendectom y with patient. She is agreeable to continue with surgery. Patient is to remain NPO. Laparoscopic appendectomy scheduled for 6 pm. Continue IV Zosyn and PRN pain medication. Plan Discussed patient's case and plan of care with Dr. Avalos.
[2024-10-22] MEDS: PIPERACILLIN/TAZOBACTAM SOD 4.5 GM in SODIUM CHLORIDE 0.9% IV 100 ML 200 ML IVPB (16:37)
--- OUTSIDE RECORDS SUMMARY | 2024-10-22 16:44 | XMS_ITS | Clinical Summary ---
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
--- OUTSIDE RECORDS SUMMARY | 2024-10-22 16:44 | XMS_ITS | Referral Summary ---
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
[2024-10-22] MEDS: LACTATED RINGERS 1,000 ML 30 ML IV CONT (17:10)
[2024-10-22] MEDS: ACETAMINOPHEN 500 MG TABLET 1000 MG PO (17:20)
[2024-10-22] MEDS: KETOROLAC 15 MG/ML VIAL (*BKC) IV PUSH (17:20)
--- NOTE | 2024-10-22 18:24 | WPDANESEPPF ---
Anes - Initial Pre Proc Eval Procedure: Operation Date: 10/22/24 18:00 Proposed Procedures p Laparoscopic Appendectomy - Brionna Avalos MD Date/Time: 10/22/24 18:24 Surgeon: Brionna Avalos MD Pre Op Diagnosis: abd pain Patient Data Age: 34 Gender: F Height: 1.57 m Weight: 54.2 kg Last Vital Signs Temp 37.1 C 10/22/24 17:05 Pulse 62 10/22/24 17:05 Resp 16 10/22/24 17:05 BP 132/81 10/22/24 17:05 Pulse Ox 100 10/22/24 17:05 O2 Del Method Room Air 10/22/24 12:38 Allergies Allergy/AdvReac Type Severity Reaction Status Date / Time No Known Allergies Allergy Verified 10/22/24 10:38 Laboratory Tests 10/22/24 10/22/24 13:25 13:27 WBC 13.8 H K/mm3 (4.5-10.0) RBC 4.66 M/mm3 (4.2-5.4) Hgb 12.5 g/dL (12.0-15.0) Hct 39.1 % (37.0-47.0) MCV 83.9 fl (80-100) MCH 26.8 pg (26-34) MCHC 32.0 g/dl (32-36) RDW 15.9 H % (11.5-14.5) Plt Count 259 k/mm3 (150-375) MPV 11.1 H fl (7.4-10.4) Immature Gran % (Auto) 0.4 % (0-0.5) Neut % (Auto) 85.0 H % (45.5-73.1) Lymph % (Auto) 9.2 L % (18.3-44.2) [place] % (Auto) 4.9 % (2.6-8.5) Eos % (Auto) 0.2 % (0-4.4) Baso % (Auto) 0.3 % (0.2-1.2) Lymph # (Auto) 1.26 K/mm3 (0.9-3.2) [place] # (Auto) 0.7 H K/mm3 (0.1-0.6) Eos # (Auto) 0.0 K/mm3 (0-0.3) Baso # (Auto) 0.0 K/mm3 (0.0-0.1) Abs Immat Gran (auto) 0.06 H K/mm3 (0.00-0.031) Absolute Neuts (auto) 11.7 H K/mm3 (1.3-6.7) Absolute Nucleated RBC 0.000 K/mm3 (0.0-0.012) Nucleated RBC % 0.0 % (0.0-0.2) Sodium 135 L mmol/L (137-145) Potassium 3.5 mmol/L (3.4-5.0) Chloride 101 mmol/L (98-107) Carbon Dioxide 24 mmol/L (22-30) Anion Gap 10 mmol/L (4-12) BUN 10 mg/dL (7-17) Creatinine 0.63 L mg/dL (0.7-1.0) Estim Creat Clear Calc 86 ml/min Estimated GFR > 60 (59 - ) Glucose 88 mg/dL (65-110) Calcium 9.5 mg/dL (8.4-10.2) Total Bilirubin 0.9 mg/dL (0.2-1.3) AST 30 U/L (14-36) ALT 15 U/L (6-35) Alkaline Phosphatase 74 U/L (38-126) Total Protein 8.4 H g/dL (6.3-8.2) Albumin 5.0 g/dL (3.5-5.1) Lipase 46 U/L (23-300) Urine Color Yellow (Yellow) Urine Appearance Clear (Clear) Urine pH 6.5 (5.0-9.0) Ur Specific [place] 1.004 (1.001-1.035) Urine Protein Negative mg/dL (Negative) Urine Glucose (UA) Negative mg/dL (Negative) Urine Ketones Negative mg/dL (Negative) Ur Blood (Man) Negative (Negative) Urine Nitrate Negative (Negative) Urine Bilirubin Negative (Negative) Urine Urobilinogen 0.2 mg/dL (<2.0) Add Ur Microanalysis Reviewed Leukocyte Esterase Rfl Trace H SHANIQUE/UL (Negative) Urine RBC 0-2 /hpf (0-2) Urine WBC 6-10 H /hpf (0-3) Ur Squamous Epith Cells Few /hpf (Few) Urine Bacteria None seen /hpf Urine Casts 0-2 POC Urine HCG, Qual Negative (Negative) Patient hx anesthesia problems: none Family hx anesthesia problems: none Results Review: All pre-operative results and documents have been reviewed as part of the pre-operative evaluation. [facility] Family History Family History Mother Family history of hyperthyroidism Other Family history of malignant neoplasm of cervix Social History Social History (Updated 10/22/24 @ 18:25 by Fran Cavanaugh, DO) Second hand tobacco smoke exposure: No Alcohol intake: never Substance use: current Substance use type: marijuana Other substance usage details: daily Anes - Eval Final PreProcedure Day of Procedure 10/22/24 18:24 Patient weight: normal Heart: regular rate and rhythm Lungs: clear to auscultation Airway: Mallampati scale class II Neurological: alert and oriented Last oral intake: >/= 8 hours ASA classification: III Emergent: yes Anesthetic plan: proceed Anesthesia type and monitoring: general ETT and standard monitoring Results Review: All pre-operative results and documents have been reviewed as part of the pre-operative evaluation. Informed Consent: The patient's anesthetic plan and its attendant risks and benefits were discussed with the patient/family/POA. Questions were solicited and answers provided to the satisfaction of the patient/family/POA.
[2024-10-22] MEDS: fentaNYL CITRATE INJ (*CRX) 100 MCG/2 ML VIAL 25 MCG IV PUSH ×2 (18:28→18:32)
--- NOTE | 2024-10-22 18:56 | WPDHPUPDATE1 ---
History and Physical Update Update Date/Time: 10/22/24 18:56 History and Physical has been reviewed, including an updated exam of the patient. There are NO changes in the patient's condition. Risks, benefits, and alternatives have been discussed and questions answered. Patient agrees to proceed with procedure.
--- NOTE | 2024-10-22 19:14 | S_PTH ---
PATIENT: Silvio Frazier LOC: [facility] U#:[id number] AGE/SX: 34/F ROOM: RE10/22/[address]: Brionna Avalos MD : 1990 BED: DIS: 10/22/2024 SPEC #: [id number] RECD: 10/23/24 06:59 STATUS: CASPER RELefty #: [id number] BALTAZAR: 10/22/24 19:[address]: Brionna Avalos DEPT: [facility] Surgical RECD BY: Mansi Martinez ENTERED: 10/23/24 07:00 SP TYPE: Surgical OTHR DR: Hui Rodriguez, IRON CUTTER Tissues: A - Appendix Procedures: Hematoxylin and Eosin Stain Gross and Microscopic Level 3
[2024-10-22] MEDS: BUPIVACAINE/EPINEPHRINE 0.5% 50 ML VIAL 30 ML INFILTRATE (19:17)
--- NOTE | 2024-10-22 19:25 | P.OP_ITS ---
Procedure Note - Detailed Date of Procedure 10/22/24 Pre-op Diagnosis acute appendicitis Post-op Diagnosis Same Procedure Performed laparoscopic appendectomy Surgeon Brionna Avalos MD Anesthesia General and Local Indications 34 y/o F presenting to ED c acute appendicitis Findings acute appendicitis no evidence of perforation Description of Procedure The patient was taken to the operating room and placed in the supine position. After adequate induction of general anesthesia, the patient was prepped and draped in the normal sterile fashion. A time-out was then done to verify the patient's identity, as well as the procedure being performed. I began by making a 5 mm incision in the supraumbilical region, through this a Veress needle was placed in the peritoneal cavity. CO2 gas was then insufflated and after adequate pneumoperitoneum was achieved the Veress needle was removed. Then placed a 5 mm Optiview trocar under direct visualization into the peritoneal cavity. I then insufflated through this trocar site and the endoscope was placed into the trocar. Under direct visualization, placed a further 5 mm suprapubic port as well as an additional 12 mm port in the left lower abdomen. At this point identified the cecum, I retracted the cecum both medially and superiorly allowing me to expose the appendix. The appendix was noted to be very dilated and inflamed especially towards the tip. The appendix was noted to be very adherent to the right lateral sidewall as well as the ileum. I was able to bluntly dissect the appendix from these adhesions. I then was able to locate the base of the appendix with the cecum. I created a window with the [place] dissector between the appendix itself and the mesoappendix. I then transected the mesoappendix with a white vascular staple load. The Endo-ISRAEL was then reloaded with a blue staple load and I transected the base of the appendix. Once the specimen was completely detached, an endo-pouch was placed into the 12 mm port site and the specimen was removed through the endo-pouch. The appendiceal specimen will be sent to pathology for further review. I then copiously irrigated the right lower quadrant. Hemostasis was noted at both stap le lines no other pathology was seen in this area. I then moved the camera to the suprapubic port to check our its port of entry. No iatrogenic injury or other pathology was noted in the upper abdomen. I then closed the 12 mm port site with a Arthur code and 0 Vicryl suture under direct visualization. At this point, the abdomen was desufflated and all ports were removed. All port sites were closed with 4 Monocryl subcuticular suture. Dermabond was placed on all wounds. The patient tolerated the procedure well and was extubated in the operating room postop. He will be sent to the recovery room in stable condition. Estimated Blood Loss 10 Drains No Packing No Pathology Yes Complications No immediate complications Condition Stable Disposition PACU [facility] Billing Surgery - Charge Forward: Surgery Billing
[2024-10-22] MEDS: oxyCODONE HCL (*CRX) 5 MG TAB IR PO (20:52)
== END 2024-10-22 21:25 | disposition home or self-care (01) ==
LOC: ANHED 16:24 → ANHSURGERY 16:39
PROVIDERS: Emergency Medicine; Emergency Provider Student in an Organized Health Care Education/Training Program; PCP Midwife; Visit Provider Surgery
PROC: 0DTJ4ZZ Resection of Appendix, Percutaneous Endoscopic Approach (ICD-10-PCS; CPT 44970; principal; 2024-10-22 18:00)
DX: K35.80 Unspecified acute appendicitis (principal); F12.90 Cannabis use, unspecified, uncomplicated
CPT/HCPCS: 44970; 36415; 74177; 80053; 81001; 81025; 83690; 85025; 87086; 88304; 96365; 96375; 99285; A9270; J0330; J1100; J1171; J1885; J2003; J2250; J2270; J2405; J2543; J2704; J3010; J7120; Q9967